=== PATIENT | female | born 1995 | race Caucasian/White ===

== ENCOUNTER 2017-03-08 01:14 | Emergency (ER) | payer BC ==
[~2017-03-08] VITALS: Ht 162.6 cm; Wt 54.5 kg
[2017-03-08 01:17] VITALS: TEMP 97.6
[2017-03-08] MEDS ORDERED: DEPO-PROVER150 MG/M1 IM (01:20)
[2017-03-08] MEDS ORDERED: IMITREX100 MG PO (01:20)
[2017-03-08 02:45] VITALS: BP 101/82; PULSE 86
== END 2017-03-08 02:46 | disposition home or self-care (01) ==
LOC: COL.ER 01:14
DX: G43.909 Migraine, unspecified, not intractable, without status migrainosus (principal)
CPT/HCPCS: J1200; J1885; J2550; J7030